=== PATIENT | female | born 1985 | race Caucasian/White ===

== ENCOUNTER 2018-08-13 16:33 | Emergency (ER) | payer MEDICAID, SELFPAY ==
[2018-08-13 16:39] VITALS: BP 128/80; PULSE 96; RESP 18; TEMP 36.6; O2SAT 100
--- NOTE | 2018-08-13 16:52 | DI.RAD_ITS ---
SYMPTOM/DIAGNOSIS: LEFT ANKLE PAIN, S/P FALL LEFT ANKLE: 08/13 Three views were obtained. The ankle mortise appears well maintained. No fracture is seen.
--- NOTE | 2018-08-13 16:52 | DI.RAD_ITS ---
SYMPTOM/DIAGNOSIS: PAIN, S/P FALL LEFT FOOT: 08/13 Three views were obtained. No fracture seen.
[2018-08-13] MEDS: Ibuprofen 600 MG TAB (16:55)
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
--- NOTE | 2018-08-13 17:42 | DI.VRAD_ITS ---
EXAM: XR Left Ankle EXAM DATE/TIME: 08/13/2018 4:53 PM CLINICAL HISTORY: 33 years old, female; Ankle; Left; Patient HX: Pain S/P fall TECHNIQUE: Imaging protocol: XR Left ankle. Views: 3 or more views. COMPARISON: No relevant prior studies available. FINDINGS: Bones/joints: No fracture or dislocation. Normal bone density. Small superior calcaneal spur. Soft tissues: There is swelling of the lateral ankle soft tissues. IMPRESSION: No fracture. Dictated and Authenticated by: Mikel Rene MD. Ordering:TANIYA Reynoso MD
--- NOTE | 2018-08-13 17:43 | DI.VRAD_ITS ---
EXAM: XR Left Foot Complete EXAM DATE/TIME: 08/13/2018 4:53 PM CLINICAL HISTORY: 33 years old, female; Foot; Left; Patient HX: Pain S/P fall TECHNIQUE: Imaging protocol: XR Left foot. Views: 3 or more views. COMPARISON: No relevant prior studies available. FINDINGS: Bones/joints: No fracture or dislocation is identified. There mild degenerative changes within the great toe metatarsal phalangeal and metatarsal-sesamoid joints. Soft tissues: There is mild swelling of the soft tissues. IMPRESSION: No fracture. Dictated and Authenticated by: Mikel Rene MD. Ordering:TANIYA Reynoso MD
== END 2018-08-13 18:07 | disposition home or self-care (01) ==
PROVIDERS: Emergency Provider Emergency Medicine; PCP Family Medicine
DX: S93.402A Sprain of unspecified ligament of left ankle, initial encounter (principal); S93.602A Unspecified sprain of left foot, initial encounter; X50.9XXA Other and unspecified overexertion or strenuous movements or postures, initial encounter; W10.1XXA Fall (on)(from) sidewalk curb, initial encounter
CPT/HCPCS: 29515; 99284; 73610; 73630; 99283; L1902

== ENCOUNTER 2019-12-13 12:01 | Emergency (ER) | payer MEDICAID, SELFPAY ==
[2019-12-13 12:41] VITALS: BP 141/92; PULSE 106; RESP 18; TEMP 36.5; O2SAT 98
[2019-12-13] MEDS: Acetaminophen 325 MG TAB 650 MG PO (13:59)
[2019-12-13] MEDS: Ibuprofen 600 MG TAB PO (14:00)
--- NOTE | 2019-12-13 14:31 | DI.RAD_ITS ---
EXAM: XR TOE LT GREAT CLINICAL HISTORY: nail bed injury, pain. TECHNIQUE: 2D digital imaging was performed. COMPARISON: CR XR foot LT complete from 08/13/2018 FINDINGS: BONES: No acute fracture is present. No bony destructive lesion is seen. JOINTS: No dislocation present. SOFT TISSUE: Normal. IMPRESSION: No evidence of acute fracture, dislocation, or subluxation. Findings were discussed with the emergency department on the date of the examination. DATA REPOSITORY: RADIATION DOSE DELIVERED:
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
[2019-12-13 14:38] VITALS: BP 122/79; PULSE 72; RESP 18; TEMP 36.3; O2SAT 98
== END 2019-12-13 14:46 | disposition home or self-care (01) ==
PROVIDERS: Emergency Provider Student in an Organized Health Care Education/Training Program; PCP Family Medicine
DX: S97.112A Crushing injury of left great toe, initial encounter (principal); S90.212A Contusion of left great toe with damage to nail, initial encounter; W23.0XXA Caught, crushed, jammed, or pinched between moving objects, initial encounter
CPT/HCPCS: 90471; 99284; 73660; 99283

== ENCOUNTER 2020-06-10 02:21 | Outpatient (CLI) | payer MEDICAID, SELFPAY ==
--- NOTE | 2020-06-10 10:30 | DI.RAD_ITS ---
Exam(s) XR FEMUR LT EXAM: XR FEMUR LT CLINICAL HISTORY: FX LT FEMUR,ASSESS HEALING. TECHNIQUE: 2D digital imaging was performed. COMPARISON: No exams were available for comparison FINDINGS: BONES: There is an intramedullary nail transfixing the distal left femoral fracture. Fracture lines are visualized with the possibility of nonunion. A CT scan of the left femur should be considered fo r further evaluation. No bony destructive lesion is seen. Visualized portion of knee and hip joints are unremarkable. SOFT TISSUE: Normal. IMPRESSION: DATA REPOSITORY: RADIATION DOSE DELIVERED:
== END 2020-06-10 02:41 ==
PROVIDERS: PCP Family Medicine; Visit Provider Orthopaedic Surgery Orthopaedic Trauma
DX: S72.492D Other fracture of lower end of left femur, subsequent encounter for closed fracture with routine healing
CPT/HCPCS: 73552

== ENCOUNTER 2020-06-18 01:26 | Outpatient (CLI) | payer MEDICAID, SELFPAY ==
--- NOTE | 2020-06-18 | DI.CT_ITS ---
Exam(s) CT LOWER EXTREMITY LT WO EXAM: CT LOWER EXTREMITY LT WO CLINICAL HISTORY: H/O LT FEMUR FX, ? NON UNION,S72.8X2A. TECHNIQUE: Imaging Protocol: Axial computed tomography images with coronal and sagittal reformatted images were created and reviewed. 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 In addition, above the fractu re site in the distal femur there is a wire which is associated with the intramedullary gemini questiona ble. At the level of the fracture there is no union callus evident. There is no obvious radiographi c evidence of osteomyelitis. However, there is mottling evident in the femoral condyles and patella probably related to nonuse of osteopenia. Similar finding also evident in the tibial plateau and fib ular head-neck. No obvious evidence of osteomyelitis.. No evidence of knee joint effusion. 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 No obvious radiographic ev idence of osteomyelitis. Osteopenia evident. RADIATION DOSE DELIVERED: 423.79mGy.cm Total DLP DATA REPOSITORY: All CT scans at this facility are submitted to the National Radiology Data Registry (NRDR) Dose Index Registry (DIR) with the [employer] ([employer]). RADIATION OPTIMIZATION: All CT scans at this facility use at least one of these dose optimization te chniques: automated exposure control; mA and/or kV adjustment per patient size (includes targeted exa ms where dose is matched to clinical indication); or iterative reconstruction.
== END 2020-06-18 01:46 ==
PROVIDERS: PCP Family Medicine; Visit Provider Orthopaedic Surgery Orthopaedic Trauma
DX: S72.8X2 Other fracture of left femur (principal); M85.88 Other specified disorders of bone density and structure, other site
CPT/HCPCS: 73700

== ENCOUNTER 2020-07-28 02:07 | Outpatient (CLI) | payer MEDICAID, SELFPAY ==
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
== END 2020-07-28 02:27 ==
PROVIDERS: PCP Family Medicine; Visit Provider Physician Assistant
DX: Z01.818 Encounter for other preprocedural examination (principal); L72.3 Sebaceous cyst
CPT/HCPCS: 76881

== ENCOUNTER 2020-08-03 03:14 | Outpatient (CLI) | payer MEDICAID, SELFPAY ==
[2020-08-03 11:45] LABS: Source Nasal/Nares
[2020-08-03 16:46] LABS: COVID-19 PCR Negative (Negative)
== END 2020-08-03 03:15 | disposition home or self-care (01) ==
LOC: LBO 03:15
PROVIDERS: PCP Family Medicine; Visit Provider Orthopaedic Surgery Orthopaedic Trauma
DX: Z20.822 Contact with and (suspected) exposure to COVID-19 (principal); Z01.818 Encounter for other preprocedural examination
CPT/HCPCS: 87635

== ENCOUNTER 2021-01-05 00:54 | Outpatient (CLI) | payer MEDICAID, SELFPAY ==
--- NOTE | 2021-01-05 | DI.CT_ITS ---
Exam(s) CT LOWER EXTREMITY LT WO EXAM: CT LOWER EXTREMITY LT WO CLINICAL HISTORY: CLOSED FX SHAFT LT FEMUR WITH NONUNION,S72.302K,S/P ORIF. TECHNIQUE: Imaging Protocol: Axial computed tomography images with coronal and sagittal reformatted images were created and reviewed. COMPARISON: CT CT LOWER EXTREMITY LT WO from 06/18/2020 FINDINGS: Bones: There is again seen a comminuted fracture involving the distal 3rd of the left femur. There is an intramedullary gemini in place. The screws in the distal aspect of the intramedullary gemini have be en removed. There has been interval placement of a sideplate and screws transfixing the fracture. T he sideplate inhibits evaluation of the lateral aspect of the fracture. No bony bridging is seen acr oss the visualized mid and medial aspect of the fracture consistent with nonunion. No definite new f racture or dislocation is present. No lytic or sclerotic lesions are identified. Soft Tissues: Normal. IMPRESSION: 1. Interval placement of a sideplate and screws crossing the distal femoral fracture. Interval remov al of the screws from the distal femoral gemini. 2. Persistence of the fracture line in the distal femur consistent with nonunion. No definite bony b ridging is seen at this time. The lateral aspect of the fracture is partly obscured secondary to art ifact from the new sideplate. RADIATION DOSE DELIVERED: Total DLP Total DLP DATA REPOSITORY: All CT scans at this facility are submitted to the National Radiology Data Registry (NRDR) Dose Index Registry (DIR) with the [employer] ([employer]). RADIATION OPTIMIZATION: All CT scans at this facility use at least one of these dose optimization te chniques: automated exposure control; mA and/or kV adjustment per patient size (includes targeted exa ms where dose is matched to clinical indication); or iterative reconstruction.
--- OUTSIDE RECORDS SUMMARY | 2021-01-05 00:56 | XMS_ITS ---
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 ALLERGIES Substance Reaction Event Type Date Status seasonal Unknown Non Drug Allergy Sep, Active ENCOUNTERS Encounter Location Date Diagnosis [facility] 8 [facility] Jan, OFFICE [address] [facility] Jan, OFFICE [address] [facility] [address] [place] [address] Sep, Acute rhinitis J00 ; OFFICE 1 [place], [place] Asthma J45.909 and PTSD 09787 (post-traumatic stress disorder) F43.10 [facility] 8 [facility] Sep, OFFICE [address] [facility] OFF[facility] [address] [place] [address] Sep, [place] [address] [facility] 8 [facility] Aug, Anxiet y F41.[address] [facility] 8 [facility] Aug, Anxiet y F41.9 [address] [facility] 8 [facility] Aug, Anxiet y F41.9 [address] [facility] 8 [facility] May, Asthma J45.909 [address] [facility] 8 [facility] Sep, Immuni ty status testing OFFICE 1 [place], [place] Z01.84 [address] [facility] [address] [facility] Mar, [place] [address] syndrome typ e 1 of right upper extremity G90.511 ADMINISTRATION [address] [facility] Mar, [place] [address] ORTHOPEDIC OFFICE [facility] Feb, [place] [address] ORTHOPEDIC OFFICE [address] [facility] Dec, [place] [address] [facility] 8 [facility] Dec, Acute postoperative pain OFFICE 1 [place] of extremity G 89.18 14937 [facility] 8 [facility] Dec, OFFICE 1 [place] [address] ORTHOPEDIC OFFICE 173 [facility] Nov, [place] [address] [facility] 8 [facility] Nov, Asthma J45.909 and URI OFFICE 1 [place], [place] (upper respira tory [address] infection) J06.9 [facility] [address] [facility] Nov, [place] [address] [facility] 8 [facility] Nov, Right arm pain M79.601 ; OFFICE 1 [place], [place] Asthma J45.909 and URI 63683 (upper respirato ry infection) J06.9 [facility] OFFICE 173 [facility] Sep, [place] [address] ORTHOPEDIC OFFICE 173 [facility] Sep, Right arm pa in M79.601 [place] [address] ORTHOPEDIC OFFICE 173 [facility] Sep, Right arm pa in M79.601 [place] [address] ORTHOPEDIC OFFICE 173 [facility] Sep, Right arm pa in M79.601 [place] [address] LPO-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 TEAM 173 [facility] Aug, [place] [address] [facility] [address] [facility] Aug, Right arm p ain M79.601 [place] [address] ORTHOPEDIC OFFICE 173 [facility] Aug, Right arm pa in M79.601 [place] [address] ORTHOPEDIC OFFICE 173 [facility] Aug, [place] [address] ORTHOPEDIC OFFICE 173 [facility] Aug, Arm weakness R29.898 [place] [address] ORTHOPEDIC OFFICE 173 [facility] Aug, [place] [address] ORTHOPEDIC OFFICE 173 [facility] Aug, [place] [address] ORTHOPEDIC OFFICE 173 [facility] Aug, Right should er pain, [place] [address] unspecified chronicity M25.511 ORTHOPEDIC OFFICE 173 [facility] Aug, [place] [address] ORTHOPEDIC OFFICE 173 [facility] Aug, [place] [address] G54.5 [facility] 8 [facility] Apr, Right elbow pain M25.521 OFFICE 1 [place], [place] ; Anemia D64.9 ; [address] Screening for li pid disorders Z13.22 0 ; Asthma J45.909 a nd Well adult Z00.00 ORTHOPEDIC OFFICE 173 [facility] Apr, [place] [address] ORTHOPEDIC OFFICE 173 [facility] Apr, Closed boxer ''[place] [address] with routine healing, subsequent encou nter S62.339D [facility]TH[facility]IC OFFICE 173 [facility] Mar, Closed boxer ''[place] [address] with routine healing, subsequent encou nter S62.339D ORTHOPEDIC OFFICE 173 [facility] Mar, [place] [address] ORTHOPEDIC OFFICE 173 [facility] Mar, [place] [address] ORTHOPEDIC OFFICE 173 [facility] Mar, Closed boxer ''[place] [address] with routine healing, subsequent encou nter S62.339D [facility] 8 [facility] Feb, OFFICE 1 [place] [address] ORTHOPEDIC OFFICE [address] [facility] Feb, Closed boxer ''[place] [address] with routine healing, subsequent encou nter S62.339D ORTHOPEDIC OFFICE 173 [facility] Feb, Closed box[place] ''[place] [address] with routine healing, subsequent encou nter S62.339D ORTHOPEDIC OFFICE 173 [facility] Feb, Closed [place] ''[place] [address] with routine healing, subsequent encou nter S62.339D ORTH[facility]IC OFFICE 173 [facility] Jan, [place] [address] neck of fift h metacarpal bone, right hand , initial encounter for cl osed fracture S62.366 A IMMUNIZATIONS No Known Immunizations SOCIAL HISTORY Qualifiers Date Former Smoker REASON FOR REFERRAL FUNCTIONAL STATUS PLAN OF CARE Activity Details Future Test MEASLES IGG ANTIBODIES 74840 802 Future Test MUMPS IGG/IGM ANTIBODIES 201 34256 Future Test RUBELLA 30410262 Future Test NM Bone Scan Limited (80366) 20170912 Future Test X Elbow R 3V 20170828 Future Test X Wrist R V 20170828 Future Test MR Joint Upper Ext R w/o (80 519) 20170817 Future Test X Shoulder R 20170814 Future Test X Hand R 3V 20170327 Future Test X Hand R 3V 20170314 VITAL SIGNS MEDICATIONS Medication Instructions Dosage Frequency Start End Date Duration Stat us Date Albuterol Inhalation q6h 2 puffs Sep, day(s) Unkno wn Sulfate HFA 108 prn for 2019 (90 Base) wheezings MCG/ACT Montelukast Orally Once a 1 tablet Sep, day(s) Unk nown Sodium 10 MG day for nasal 2019 congsetion PROCEDURES No Known procedures RESULTS Name Result Date Reference Range NM Bone Scan Limited (37150) 2017-09-20 Image Accessible CBC WITH AUTO DIFF 2017-08-29 WBC 3.7 4.0-12.0 RBC 4.2 4.5-6.0 HGB 12.6 12.5-16.0 HCT 37.8 37.0-47.0 MCV 90 78-100 MCH 30.1 27.0-32.0 MCHC 33.3 32.0-36.0 RDW 13.3 11.0-14.0 PLT 156 140-440 MPV 10.4 7.4-11.0 ANC# 1.6 1.4-7.9 IG# 0.0 0.0-0.1 LY# 1.6 1.5-4.0 MO# 0.3 0.2-0.8 EO# 0.2 0.0-0.7 BA# 0.0 0.0-0.2 NE% 43.7 IG% 0.0 0.0-1.0 LY% 41.8 MO% 8.6 EO% 4.8 BA% 1.1 CRP-INFLAM 2017-08-29 CRP <0.2 0.0-0.9 SED RATE 2017-08-29 ESR 9 0-30 X Elbow R 3V 2017-08-29 See Below For Report X Wrist R 3V 2017-08-29 See Below For Report MR Joint Upper Ext R w/o (09430) 2017-08-24 See Below For Report X Shoulder R 2017-08-15 See Below For Report CBC WITHOUT DIFF (Hemogram) 2017-05-02 WBC 4.4 4.0-12.0 RBC 4.2 4.5-6.0 HGB 12.0 12.5-16.0 HCT 37.6 37.0-47.0 MCV 90 78-100 MCH 28.8 27.0-32.0 MCHC 31.9 32.0-36.0 RDW 13.4 11.0-14.0 PLT 172 140-440 IRON 2017-05-02 FE 80 38-175 FERRITIN 2017-05-02 FERR 20.0 8.0-388.0 LIPID W/ CALCULATED LDL 2017-05-02 CHOL 172 0-200 TRIG 26 0-200 HDL 77 40-60 LDL CALC 90 5-99 CHOL/HDL 2.2 0.0-4.5 X Hand R 3V 2017-03-27 See Below For Report X Hand R 3V 2017-03-14 See Below For Report X Hand R 3V 2017-02-01 See Below For Report MR Joint Upper Ext R w/o ([id number]) 2013-10-30 Image Accessible REASON FOR VISIT hosp f/u ([facility]), Anxiety, Concerns: would like to discuss a high CBD , appt today, call back / appt , 6 WK F/U,pt canc 09/30, Medication question, Med side effects, anxiety, no symptoms, 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 Lagos sign-sd, PLEASE CALL., medical card discussion, medication card, Medical marijuana card , updated note for [facility] , post surgical complications, patient states she is lots of pain, Patient states she had removal of hardware and skin graft, took muscle tissue and achored to radius, patient states she was given 5mg rapid release oxycontin, she took last pill earlier today, Patient states been alternating motrin and tylenol, patient states she called [facility] for other pain meds they stated they would not be able to do so, patient only had enough for 4-5 days, [facility] [facility] [place], Dr Gonzalez for Daycare, coughing , Pt states her sinuses are bothering her, Pt states she has had SOB, Pt had to cancel her Surgery that was scheduled on Monday, Coughing, difficulty breathing, [facility] Preop, Pt states she has had some sinus pain , Routine preop labs needed, no EKGneeded per Анна at [facility]- ac, Refill Diazepam-HK, Wants to hold off on the Flu shot today, Medications reviewed w/pt,med. list is correct-, [facility] form/labs to [facility], Multiple requests , [facility], bone scan question, Images, labs, order labs and xrays., Multiple requests , OT, and neurology orders, MRI results , anti anxiety rx for MRI, DISCLAIMER: THIS NOTE WAS CREATED USING [employer].5 VOICE RECOGNITION SOFTWARE. IT WAS REVIEWED FOR MAJOR CONTENT. HOWEVER, THERE MAY BE MULTIPLE SMALL DISCREPANCIES AND ERRORS DUE TO THE VOICE RECOGNITION ASPECTS OF THE SOFTWARE., Rt arm pain continues, pt states she can move her arm a little but the pain is still persistant on the frontal part of her shoulder-BJP, pt states the pain is radiating into her shoulder blade, chest, and neck area-BJP, PK call back, discuss steroid medication, Rt arm pain, woke up this morning w/ arm too painful to move, DISCLAIMER: THIS NOTE WAS CREATED USING [employer].5 VOICE RECOGNITION SOFTWARE. IT WAS REVIEWED FOR MAJOR CONTENT. HOWEVER, THERE MAY BE MULTIPLE SMALL DISCREPANCIES AND ERRORS DUE TOTHE VOICE RECOGNITION ASPECTS OF THE SOFTWARE., pt states her shoulder has been hurting the last coup le of days, states she thought she slept on it wrong-BJP, pt states the pain is radiating up her neck and into her chest, also down her arm to her thumb-BJP, pt states she can not move her arm what so ever, states even her fingers are stiff- BJP, pt states her pain level is at an 8-BJP, new pt, pt has had right hand/ arm surgeries in the past, would like a referral to ortho, pt would like an inhaler for her asthma , pt states she has anemia , rx refill, DISCLAIMER: THIS NOTE WAS CREATED USING [employer]5 VOICE RECOGNITION SOFTWARE. IT WAS REVIEWED FOR MAJOR CONTENT. HOWEVER, THERE MAY BE MULTIPLE SMALL DISCREPANCIES AND ERRORS DUE TO THE VOICE RECOGNITION ASPECTS OF THE SOFTWARE., 1 month f/u, Rthand fx f/u-sd, Pt states break at 5th Rt finger still hurts "all the time" worse on more movement-sd, Pt states had Rt radial head break that hurts, feels like muscle needs to be stretched/massaged-sd, Pt states was using Ibuprofen 800 during day and rx pain med only at night, out now-sd, Rt hand, 5th MC fx, 2 wk f/u, DISCLAIMER: THIS NOTE WAS CREATED USING [employer]5 VOICE RECOGNITION SOF TWARE. IT WAS REVIEWED FOR MAJOR CONTENT. HOWEVER, THERE MAY BE MULTIPLE SMALL DISCREPANCIES AND ERRORS DUE TO THE VOICE RECOGNITION ASPECTS OF THE SOFTWARE., Rt hand, 5th MC fx, 2 wk f/u, Medications reviewed w/pt,med. list is correct. BL, patient stated that she is having pain at the sight of the break, the lateral and medial palm, also having like a nerve pain up into her arm pit. BL, Patient state that if PK is willing she would like to have a refill as she takes it when she is done with work or after a PT session. BL, 2 wk f/u, question for PK, needs a script for albuterol, Cast removal, pt requested another xray, Medications reviewed w/pt,med. list is correct. BL, new pt , "DISCLAIMER: THIS NOTE WAS CREATED USING [employer].5 VOICE RECOGNITION SOFTWARE. IT WAS REVIEWED FOR MAJOR CONTENT. HOWEVER, THERE MAY BE MULTIPLE SMALL DISCREPANCIES AND ERRORS DUE TO THE VOICE RECOGNITION ASPECTS OF THE SOFTWARE., Splint is falling apart, not supportive, pt states pinky finger is crooked and would like PK to look at it, "DISCLAIMER: THIS NOTE WAS CREATED USING [employer].5 VOICE RECOGNITION SOFTWARE. IT WAS REVIEWED FOR MAJOR CONTENT. HOWEVER, THERE MAY BE MULTIPLE SMALL DISCREPANCIESAND ERRORS DUE TO THE VOICE RECOGNITION ASPECTS OF THE SOFTWARE., F/U right hand cast, pt states she is having pain at the site of the break, radiating up her arm into armpit and shoulder, states trying to move it, pt states her ring finger is feeling better but pinky isn't feeling right, Hand fx, 1 wk f/u, pt states her hand is still painful and wondering if that is normal, swelling has gone down, Rt hand fx Insurance Providers [facility] Health Member Patient Patient Patient Patient Patient Subscriber Subscriber Subscriber Group Insurance Plan Plan Plan Plan ID Relationship Address Phone Name Date of ID Name Date of No Type Insurance Insurance Insurance Coverage to Subscriber Address Phone Name Dates NEW [phone] NEW self JUAN CARLOS [id number] [place] [id number] [facility] [address] [address] SELF PAY self JUAN CARLOS [id number] [place] [id number] INSURANCE MEDICAID EDS MEDICAID self JUAN CARLOS [id number] [place] OCTAVIO [facility] [id number] MEDICAID XEROS MEDICAID self JUAN CARLOS [id number] [place] [facility] [id number] MEDICAID XEROS MEDICAID self JUAN CARLOS [id number] [place] [facility] [facility] [id number] MEDICAID EDS MEDICAID self JUAN CALROS [id number] [place] [facility] [id number] SELF PAY [address] SELF PAY self JUAN CARLOS [id number] [place] [id number] INSURANCE [facility] [phone] NEW self JUAN CARLOS [id number] [place] [id number] [facility] [id number] [address] SELF PAY self JUAN CARLOS 1985 [place] [id number] INSURANCE MEDICAL (GENERAL) HISTORY Type Description Date Medical History Exercise induced asthma /mild intermittent asthma Medical History 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 Pain Surgical History s/p tubal ligation Hospitalization History Childbirth x5 2001, 2006, 2009 , 2011, 2016
== END 2021-01-05 01:14 ==
PROVIDERS: PCP Family Medicine; Visit Provider Orthopaedic Surgery Orthopaedic Trauma
DX: S72.302K Unspecified fracture of shaft of left femur, subsequent encounter for closed fracture with nonunion (principal)
CPT/HCPCS: 73700

== ENCOUNTER 2021-06-04 15:28 | Outpatient (REF) | payer MEDICAID, SELFPAY ==
[2021-06-04 12:37] LABS: Abs Immature Grans 0.01 10^3/uL (0.0-0.06); Absolute Basophil Count 0.08 10^3/uL (0.0-0.2); Absolute Eosinophil Count 0.28 10^3/uL (0.0-0.7); Absolute Lymphocyte Count 0.95 10^3/uL (1.2-3.4); Absolute Monocyte Count 0.34 10^3/uL (0.1-0.8); Absolute Neutrophil Count 4.17 10^3/uL (1.2-6.7); Basophils % 1.4; Eosinophils % 4.8; HGB 8.8 g/dL (11.2-15.7); Immature Grans % 0.2; Lymphocytes % 16.3; MCH 29.5 pg (27.0-33.0); MCHC 31.4 % (32.0-36.0); MCV 94 fL (80-95); MPV 9.1 fL (8.0-11.0); Monocytes % 5.8; Neutrophils % 71.5; Platelet Count 360 10^3/uL (130-400); RBC 2.98 10^6/uL (3.93-5.22); RDW 15.7 % (11.7-14.6); RDW-SD 52.9 fL; WBC 5.83 10^3/uL (4.4-10.8)
== END 2021-06-04 15:29 | disposition home or self-care (01) ==
LOC: LBN 15:28
PROVIDERS: PCP Family Medicine; Visit Provider Family Medicine
DX: D62 Acute posthemorrhagic anemia (principal); Z47.89 Encounter for other orthopedic aftercare
CPT/HCPCS: 85025